=== PATIENT | female | born 1970 | race Two or more races ===

== ENCOUNTER 2016-12-27 12:44 | Outpatient (CLI) | payer BC ==
[2016-12-27 14:07] LABS: BASOPHILS % (AUTO) 0.5 % (0.0-2.0); EOSINOPHILS % (AUTO) 0.5 % (0.0-6.0); HEMATOCRIT 37 % (33-45); LYMPHOCYTES # (AUTO) 2.1 /CMM (0.8-4.8); LYMPHOCYTES % (AUTO) 26.5 % (20.0-44.0); MEAN CORPUSCULAR HEMOGLOBIN 25 PG (26.0-33.0); MEAN CORPUSCULAR HGB CONC 32 g/dl (31.0-36.0); MEAN CORPUSCULAR VOLUME 78 fL (82-100); MONOCYTES # (AUTO) 0.6 /CMM (0.1-1.30); MONOCYTES % (AUTO) 7.6 % (2.0-12.0); NEUTROPHILS # (AUTO) 5.2 /CMM (1.8-8.9); NEUTROPHILS % (AUTO) 64.9 % (43.0-81.0); PLATELET COUNT (AUTO) 356 /CMM (150-450); RDW COEFFICIENT OF VARIATION 17.4 (11.5-15.0); RED BLOOD CELL COUNT(AUTO) 4.77 MIL/uL (4.0-5.2); WHITE BLOOD COUNT (AUTO) 8.1 K/uL (4.3-11.0)
[2016-12-27 14:34] LABS: ALBUMIN 3.9 g/dL (3.4-5.0); BILIRUBIN,TOTAL 0.4 mg/dL (0.2-1.0); CALCIUM, SERUM 8.6 mg/dL (8.5-10.1); CREATININE 0.6 mg/dL (0.6-1.3); POTASSIUM 4.1 mmol/L (3.5-5.1); TOTAL PROTEIN, SERUM 7.3 g/dL (6.4-8.2)
[2016-12-27 15:23] LABS: INR 0.94 (0.87-1.13)
== END 2016-12-27 23:59 | disposition home or self-care (01) ==
LOC: LAB 12:44
DX: Z01.818 Encounter for other preprocedural examination (principal)
CPT/HCPCS: 36415; 80053-TC; 85025-TC; 85730-TC

== ENCOUNTER 2017-03-15 10:15 | Outpatient (CLI) | payer BC | END 2017-03-15 23:59 | disposition home or self-care (01) | LOC: WOU 10:15 | PROVIDERS: ATTEND Podiatrist Foot & Ankle Surgery | DX: L60.0 Ingrowing nail (principal); R60.0 Localized edema; M79.674 Pain in right toe(s) | CPT/HCPCS: A6402; G0463 ==

== ENCOUNTER 2017-03-25 06:41 | Day surgery (SDC) | payer BC ==
[2017-03-25] MEDS ORDERED: BUPIVACAINE MPF 0.5% W/EPI INJ 30 ML VIAL ONE (07:16)
[2017-03-25] MEDS ORDERED: LIDOCAINE 0.5% HCL 50 ML VIAL ONE (07:17)
[2017-03-25] MEDS ORDERED: MIDAZOLAM HCL 2 MG/2ML VIAL ONE (07:23)
[2017-03-25] MEDS ORDERED: BUPIVACAINE 0.5 % PF 150 MG/30 ML VIAL ONE (07:37)
[2017-03-25] MEDS ORDERED: FENTANYL PF 100MCG/2ML AMPUL ONE (08:34)
[2017-03-25] MEDS ORDERED: HYDROCODONE/APAP 5/325MG 1 EACH TABLET ONE (08:38)
== END 2017-03-25 09:40 | disposition home or self-care (01) ==
LOC: DS 06:41
PROVIDERS: ATTEND Podiatrist Foot & Ankle Surgery
DX: L60.0 Ingrowing nail (principal); E11.8 Type 2 diabetes mellitus with unspecified complications; E78.5 Hyperlipidemia, unspecified; F41.9 Anxiety disorder, unspecified; E66.3 Overweight; Z68.32 Body mass index [BMI] 32.0-32.9, adult
CPT/HCPCS: 71010-TC; 82962-TC; A6402; J0690; J1100; J2250; J2704; J3010; J3490

== ENCOUNTER 2017-04-01 09:04 | Outpatient (CLI) | payer BC | END 2017-04-01 23:59 | disposition home or self-care (01) | LOC: WOU 09:04 | PROVIDERS: ATTEND Podiatrist Foot & Ankle Surgery | DX: Z48.817 Encounter for surgical aftercare following surgery on the skin and subcutaneous tissue (principal); L60.0 Ingrowing nail; R60.0 Localized edema; M79.674 Pain in right toe(s) | CPT/HCPCS: A6402; G0463 ==